=== PATIENT | male | born 1955 | race Caucasian/White ===

== ENCOUNTER → 2024-08-05 11:07 | Outpatient (CLI) | payer MEDICARE, SELFPAY ==
--- NOTE | 2024-08-05 11:11 | DI.CT.S_ITS ---
PROCEDURE: CT LUNG LOW DOSE SCREENING INDICATIONS: CURRENT SMOKER TECHNIQUE: Noncontrast 2.0-2.5 mm thick sections acquired from the pulmonary apices to the posterior costophrenic angles. 7 mm thick axial MIP, and 5 mm coronal and sagittal reformats were then acquired. For radiation dose reduction, the following was used: automated exposure control, adjustment of mA and/or kV according to patient size. COMPARISON: [facility], CT, CT LOW DOSE LUNG CA SCREENING, 01/03/2022, 10:51. FINDINGS: Image quality: Diagnostic Lungs and pleura: In the right upper lung, there is a part solid nodule, that in total measures 1.3 cm. Internal solid component measures 6 mm. These are increased. No pleural effusions. No dense airspace disease. Mediastinum, heart, and esophagus: Coronary calcifications. No pathologic lymph nodes by size criteria. Normal heart size. Unremarkable esophagus. Chest wall and thyroid: Unremarkable Upper abdomen: No gross abnormality on these low-dose noncontrast images Bones: No aggressive appearing osseous abnormality IMPRESSION: LUNG-RADS 4 B; suspicious part solid pulmonary nodule in the right upper lung, with internal solid component measuring 6 mm that is increased. This is favored to represent an adenocarcinoma spectrum lesion. Consider short interval follow-up diagnostic quality chest CT with contrast, PET-CT, or sampling (the solid component of this lesion may be too small currently for the latter 2 options) This was marked in PACS as a result for follow-up and communication. Dictated by: Giovanny Yanes M.D. on 08/05/2024 at 14:01 Approved by: Giovanny Yanes M.D. on 08/05/2024 at 14:08
== END ==
PROVIDERS: PCP Family Medicine; Referring Provider Family Medicine; Visit Provider Family Medicine
DX: Z12.2 Encounter for screening for malignant neoplasm of respiratory organs; F17.210 Nicotine dependence, cigarettes, uncomplicated; I25.10 Atherosclerotic heart disease of native coronary artery without angina pectoris; R91.1 Solitary pulmonary nodule
CPT/HCPCS: 71271

== ENCOUNTER → 2024-08-26 10:11 | Outpatient (CLI) | payer MEDICARE, SELFPAY ==
--- NOTE | 2024-08-26 10:13 | DI.CT.S_ITS ---
PROCEDURE: CT CHEST W CON INDICATIONS: TOBACCO USE DISORDER TECHNIQUE: After the administration of intravenous contrast, 5 mm thick sections acquired from the pulmonary apices to the posterior costophrenic angles. 1 mm axial lung, 5 mm thick coronal and sagittal reformats and 7 mm axial MIP were acquired. For radiation dose reduction, the following was used: automated exposure control, adjustment of mA and/or kV according to patient size. COMPARISON: [facility], CT, CT LOW DOSE LUNG CA SCREENING, 01/03/2022, 10:51. [facility], CT, CT LUNG LOW DOSE SCREENING, 08/05/2024, 11:32. FINDINGS: Image quality: Diagnostic. Lower Neck: No enlarged lymph nodes. Thyroid: No thyroid nodules which require sonographic follow up, per consensus guidelines. Axillae: No enlarged lymph nodes. Chest Wall: Unremarkable. Bones: No suspicious osseous lesion. Lungs and Pleura: No pneumothorax or pleural effusions. Pleural apical scarring. Right upper lobe pulmonary nodule measuring 1.1 cm, () unchanged, and remotely 0.4 cm. Solid component measuring 0.7 cm, (), unchanged. Heart: Heart size is normal. No pericardial effusion. Thoracic Vessels: The aorta and pulmonary arteries demonstrate normal size. No central pulmonary embolism. Mediastinum and Uma: No enlarged lymph nodes. Esophagus: No wall thickening. No hiatal hernia. Upper Abdomen: Visualized upper abdomen solid organs and bowel loops appear normal. Hepatic steatosis. IMPRESSION: 1. Right upper lobe part solid pulmonary nodule measuring 1.1 cm. Unchanged in the short-term interval but increased in size compared to 2021. LUNG-RADS 4B. -Recommend follow-up CT chest in approximately 3 months. PET/CT may be helpful for further evaluation. CT-guided biopsy may be difficult due to its location and small size. May be amenable to endobronchial guided biopsy. 2. No adenopathy. 3. Hepatic steatosis. Dictated by: Fan Amin M.D. on 08/26/2024 at 12:03 Approved by: aFn Amin M.D. on 08/26/2024 at 12:18
[2024-08-26 10:54] LABS: Estimated Glomerular Filt Rate > 60 mL/min (>60)
== END ==
LOC: CT 10:13
PROVIDERS: PCP Family Medicine; Referring Provider Family Medicine; Visit Provider Family Medicine
DX: Z13.89 Encounter for screening for other disorder; R91.8 Other nonspecific abnormal finding of lung field; K76.0 Fatty (change of) liver, not elsewhere classified
CPT/HCPCS: 36415; 71260; 82565; Q9967

== ENCOUNTER → 2024-11-06 08:18 | Outpatient (CLI) | payer MEDICARE, SELFPAY ==
--- NOTE | 2024-11-06 08:20 | DI.CT.S_ITS ---
PROCEDURE: CT CHEST W CON INDICATIONS: LUNG NODULE TECHNIQUE: After the administration of intravenous contrast, 5 mm thick sections acquired from the pulmonary apices to the posterior costophrenic angles. 1 mm axial lung, 5 mm thick coronal and sagittal reformats and 7 mm axial MIP were acquired. For radiation dose reduction, the following was used: automated exposure control, adjustment of mA and/or kV according to patient size. COMPARISON: [facility], CT, CT CHEST W CON, 08/26/2024, 11:20. FINDINGS: Image quality: Diagnostic. Previously noted solid and surrounding ground-glass nodule right upper lobe measuring up to 1.0 cm in total and solid component a 7 mm unchanged. No new nodules. No pneumothorax, no pleural effusion, no pericardial effusion. Moderate calcifications of the coronary arteries, three-vessel disease, mild calcifications of the aortic valve, aortic arch unchanged. No abnormally enlarged lymph nodes. No pneumothorax, no pleural effusion, no pericardial effusion. Moderate degenerative changes of the thoracic spine unchanged. Lower Neck: No enlarged lymph nodes. Thyroid: No thyroid nodules which require sonographic follow up, per consensus guidelines. Axillae: No enlarged lymph nodes. Chest Wall: Unremarkable. Heart: Heart size is normal. Thoracic Vessels: The aorta and pulmonary arteries demonstrate normal size. Esophagus: No wall thickening. No hiatal hernia. Upper Abdomen: Mild low-attenuation of the liver commonly mild hepatic steatosis unchanged IMPRESSION: Right upper lobe pulmonary nodule unchanged. Continued follow-up suggested. No new nodules. Mild low-attenuation of the liver hepatic steatosis unchanged. Dictated by: Eliseo Evans M.D. on 11/06/2024 at 12:21 Approved by: Eliseo Evans M.D. on 11/06/2024 at 12:33
[2024-11-06 08:39] LABS: Estimated Glomerular Filt Rate > 60 mL/min (>60)
== END ==
PROVIDERS: Radiology Diagnostic Radiology; PCP Family Medicine; Referring Provider Family Medicine; Visit Provider Family Medicine
DX: R91.1 Solitary pulmonary nodule (principal); K76.0 Fatty (change of) liver, not elsewhere classified; I25.10 Atherosclerotic heart disease of native coronary artery without angina pectoris; M47.814 Spondylosis without myelopathy or radiculopathy, thoracic region
CPT/HCPCS: 36415; 71260; 82565; Q9967

== ENCOUNTER 2025-03-30 13:06 | Emergency (ER) | payer MEDICARE, SELFPAY ==
[2025-03-30 13:31] VITALS: BP 175/87; PULSE 76; RESP 16; TEMP 37; O2SAT 98; BMI 26.4
[2025-03-30 13:35] VITALS: PULSE 77; O2SAT 99
--- NOTE | 2025-03-30 13:38 | DI.CT.S_ITS ---
PROCEDURE: CT CERVICAL SPINE WO CON INDICATIONS: fall TECHNIQUE: Noncontrast 3 mm thick sections acquired from the skull base to the T4 level. Sagittal and coronal reformats were then constructed. For radiation dose reduction, the following was used: automated exposure control, adjustment of mA and/or kV according to patient size. COMPARISON: None. FINDINGS: Image quality: Excellent. Bones: No fractures or dislocations. Visualized superior ribs are intact. Mildly degenerated disc osteophyte complex at C5-6 and C6-7 which result in [id number] spinal canal stenosis at these levels. Soft tissues: Prevertebral soft tissues are normal in thickness. No paravertebral hematomas. No apical pneumothoraces. IMPRESSION: No displaced fracture or traumatic subluxation. Ulcd-uj-sjvpduiz spinal canal stenosis at C5-6 and C6-7 due to degenerative changes. Dictated by: Marko Barbosa M.D. on 03/30/2025 at 14:27 Approved by: Marko Barbosa M.D. on 03/30/2025 at 14:28
--- NOTE | 2025-03-30 13:39 | DI.CT.S_ITS ---
PROCEDURE: CT HEAD/BRAIN WO CON INDICATIONS: trauma TECHNIQUE: Noncontrast 4.5 mm thick angled axial sections acquired from the foramen magnum to the vertex, with coronal and sagittal reformats. For radiation dose reduction, the following was used: automated exposure control, adjustment of mA and/or kV according to patient size. COMPARISON: None. FINDINGS: Image quality: Diagnostic. CSF spaces: Basal cisterns are patent. No extra-axial fluid collections. The ventricles are symmetric in size and shape. Brain: No intracranial bleeds or mass effect. There is cerebral volume loss, with resultant ventricular and sulcal prominence. There are periventricular and deep white matter chronic small vessel ischemic changes. There is intracranial internal carotid artery atherosclerosis. Skull and face: Calvarium and visualized facial bones appear intact, without suspicious lesions. Sinuses: Visualized sinuses and mastoids are clear. IMPRESSION: No acute intracranial pathology. Dictated by: Marko Barbosa M.D. on 03/30/2025 at 14:26 Approved by: Marko Barbosa M.D. on 03/30/2025 at 14:27
--- NOTE | 2025-03-30 13:40 | DI.CT.S_ITS ---
PROCEDURE: CT CHEST ABD PEL W CON INDICATIONS: fall TECHNIQUE: After the administration of intravenous contrast, 5 mm thick sections acquired from the lung apices to the symphysis. 5 mm coronal and sagittal reformats were performed, with additional 7 mm MIP reformats through the lungs. For radiation dose reduction, the following was used: automated exposure control, adjustment of mA and/or kV according to patient size. COMPARISON: [facility], CT, CT CHEST W CON, 11/06/2024, 8:51. FINDINGS: Image quality: Excellent. CHEST: Lower Neck: No enlarged lymph nodes. Thyroid: No thyroid nodules which require sonographic follow up, per consensus guidelines. Axillae: No enlarged lymph nodes. Chest Wall: Right anterior chest soft tissue contusion without significant hematoma.. Lungs and Pleura: No pneumothorax or pleural effusions. Stable solid and sub solid nodule in the apical right upper lobe (), with the solid component measuring 8 mm. No new consolidation, pulmonary laceration, or contusion. No new suspicious pulmonary nodule. Mild paraseptal emphysema in the bilateral lateral upper lobes. Heart: Heart size is normal. No pericardial effusion. Triple-vessel coronary artery calcifications. Thoracic Vessels: The aorta and pulmonary arteries demonstrate normal size. The left vertebral artery originates from the aortic arch, a normal variant. Mediastinum and Uma: No enlarged lymph nodes. Esophagus: No wall thickening. No hiatal hernia. ABDOMEN: Liver: No solid mass. Diffuse hepatic steatosis. Gallbladder: No radiopaque gallstones or wall thickening. Biliary ducts: No biliary dilation. Pancreas: No ductal dilation. Spleen: Size is within normal limits. Adrenal Glands: No adrenal nodules. Kidneys and Ureters: No hydronephrosis. No solid mass. No complex renal cystic lesion which requires follow up. Stomach and Bowel: Normal colonic caliber, without significant wall thickening. Normal appendix which courses posteriorly. Peritoneum: No abnormal intraperitoneal fluid. No free air. Ventral Wall: No significant ventral hernia. Abdominal Nodes: No retroperitoneal or mesenteric adenopathy by size criteria. Vessels: Aorta and inferior vena cava are normal in size. PELVIS: Pelvic Organs: Unremarkable. Bladder: No bladder wall thickening, accounting for underdistention. Pelvic Nodes: No enlarged lymph nodes. Miscellaneous: No inguinal hernias are seen. Bones: No aggressive osseous abnormality. Multilevel degenerative changes of the mid to inferior thoracic spine with non bridging anterior osteophytes. Degenerative disc disease in the inferior lumbar spine with non bridging osteophytes. IMPRESSION: Acute soft tissue contusion of the right anterior upper chest without hematoma. Stable size of a semi-solid 1 cm nodule in the apical right upper lobe. Recommend continued follow-up as per last CT chest from November 2024. No acute abnormality in the abdomen or pelvis. Dictated by: Marko Barbosa M.D. on 03/30/2025 at 14:28 Approved by: Marko Barbosa M.D. on 03/30/2025 at 14:34
[2025-03-30 14:00] LABS: INR 1.0 (0.9-1.3); Prothrombin Time 11.4 SECONDS (9.4-12.5)
[2025-03-30 14:03] LABS: PTT Partial Thromboplastin Tim 26 SECONDS (25.1-36.5)
[2025-03-30 14:04] VITALS: PULSE 69; RESP 18; O2SAT 99
[2025-03-30 14:06] LABS: Add Manual Diff / Slide Review NO; Alanine Aminotransferase 32 IU/L (<50); Albumin 5.0 g/dL (3.5-5.0); Albumin Globulin Ratio 1.5 (1.0-2.8); Alkaline Phosphatase 59 U/L (38-126); Blood Urea Nitrogen 13 mg/dL (9-20); Calcium 9.5 mg/dL (8.4-10.2); Carbon Dioxide 25 mmol/L (22-32); Chloride 99 mmol/L (98-107); Estimated Glomerular Filt Rate > 60 mL/min (>60); Globulin 3.4 g/dL (1.7-4.1); Glucose 118 mg/dL (70-99); HEMOLYSIS < 15 (0-50); Hematocrit 41.9 % (41-53); Hemoglobin 14.9 g/dL (13.5-17.5); Lymphocytes Absolute Auto 1300 /uL (1100-4500); Magnesium 2.2 mg/dL (1.6-2.3); Mean Corpuscular HGB Conc 35.5 % (30-36); Mean Corpuscular Hemoglobin 36.5 PG (26-34); Mean Corpuscular Volume 102.8 fL (80-100); Platelet Count 166 X10^3/uL (150-400); Potassium 3.8 mmol/L (3.4-5.1); Sodium 135 mmol/L (137-145); Total Protein 8.4 g/dL (6.3-8.2)
[2025-03-30 14:30] VITALS: PULSE 73; RESP 17; O2SAT 98
--- NOTE | 2025-03-30 14:56 | ED_ITS ---
HPI - Fall General Chief Complaint: Fall Stated Complaint: RT shoulder poss dislocated Time Seen by Provider: 03/30/25 13:30 Source: patient Mode of arrival: Ambulatory History of Present Illness HPI Narrative: Patient is a 69-year-old male with no known pertinent past medical history presenting with bruising and shoulder pain. Patient states that he was asleep and had a dream where in he was running, got tangled up in his blankets and fell hitting the bedside table. States that this initially occurred 2 days prior and he had initially plan to manage this only at home. States that in the setting of persistent right shoulder pain and decreased range of motion he presents for further evaluation. Patient otherwise denies severe headache, vision changes, facial pain. He has had no chest pain or shortness of breath. complaint: fall Related Data Allergies Allergy/AdvReac Type Severity Reaction Status Date / Time No Known Drug Allergies Allergy Verified 03/30/25 13:31 Review of Systems Review of Systems ROS Unobtainable: All systems reviewed & are unremarkable except as noted in HPI and below Constitutional Constitutional: Denies fever(s) and Denies frequent falls Eyes Eyes: Denies diplopia ENT Ears, Nose, Mouth, and Throat: Reports nasal trauma Cardiovascular Cardiovascular: Denies chest pain and Denies dyspnea Respiratory Respiratory: Denies dyspnea Musculoskeletal Musculoskeletal: Reports arthralgias and Reports limited range of motion Neurologic Neurologic: Denies frequent falls Patient History Social History Smoking Status: Current every day smoker Smoking Status: Current every day smoker Exam Narrative Exam Narrative: GENERAL: in no distress, not toxic not dyspneic HEAD: Normocephalic. EYES: Pupils equal round, extraocular movements intact without pain, no periorbital swelling or proptosis ENT: Mucous membranes moist. NECK: Trachea midline. CARDIOVASCULAR: Regular rate and rhythm RESPIRATORY: Clear to auscultation. Breath sounds equal bilaterally. No wheezes, rales, or rhonchi. GASTROINTESTINAL: Abdomen soft, non-tender EXTREMITIES: No gross deformities, decreased active range of motion in the right shoulder BACK: No flank tenderness. NEURO: AOx4. Clear speech SKIN: Warm and dry -notable for diffuse ecchymosis over the right face, anterior chest wall and right shoulder PSYCH: Not anxious, is cooperative Initial Vital Signs Initial Vital Signs: Vital Signs Temperature 98.6 F 10/26/25 13:31 Pulse Rate 76 03/30/25 13:31 Respiratory Rate 16 03/30/25 13:31 Blood Pressure 175/87 H 03/30/25 13:31 Pulse Oximetry 98 03/30/25 13:31 Oxygen Delivery Method Room Air 03/30/25 13:31 Course Orders Ordered: ED Orders 03/30/25 13:38 CT cervical spine wo con Stat 03/30/25 13:39 CT head/brain wo con Stat 03/30/25 13:40 CT chest abd pel w con Stat 03/30/25 13:45 CBC Auto Diff [Complete Blood Count AUTO DIFF] Stat CMP [Comprehensive Metabolic Panel] Stat MAG [Magnesium] Stat PT [Prothrombin Time INR] Stat PTT Partial Thromboplastin Kyle Stat Discontinued Medications Acetaminophen (Acetaminophen 325 Mg Tablet) 650 mg PO NOW ONE Stop: 03/30/25 15:43 Last Admin: 03/30/25 15:50 Dose: 650 mg Documented By: FIFI Oxycodone HCl (Oxycodone Ir 5 Mg Tablet) 5 mg PO NOW ONE Stop: 03/30/25 15:43 Last Admin: 03/30/25 15:51 Dose: 5 mg Documented By: FIFI Vital Signs Vital signs: Vital Signs - 8 hr 03/30/25 13:31 03/30/25 13:35 03/30/25 14:04 Temperature 98.6 F Pulse Rate 76 77 69 Respiratory Rate 16 18 Blood Pressure 175/87 H Pulse Oximetry 98 99 99 Oxygen Delivery Method Room Air Room Air 03/30/25 14:30 03/30/25 16:01 Temperature Pulse Rate 73 68 Respiratory Rate 17 16 Blood Pressure 160/65 H Pulse Oximetry 98 98 Oxygen Delivery Method Room Air MDM - Fall Differential Diagnosis Differential diagnosis: Likely syncope, dislocation of shoulder region, concussion with loss of consciousness and other (Clavicle injury, chest wall injury, contusion, hematoma) Lab Data 03/30/25 13:45 03/30/25 13:45 Labs: Lab Results 03/30/25 Range/Units 13:45 WBC 7.4 (4.5-11.0) X10^3/uL RBC 4.07 L (4.5-5.9) X10^6/uL Hgb 14.9 (13.5-17.5) g/dL Hct 41.9 (41-53) % MCV 102.8 H (80-100) fL MCH 36.5 H (26-34) PG MCHC 35.5 (30-36) % RDW 14.0 (11.6-14.8) % Plt Count 166 (150-400) X10^3/uL Neut % (Auto) 69.5 (50-75) % Lymph % (Auto) 17.8 L (25-40) % Randolph % (Auto) 10.8 (3-14) % Eos % (Auto) 1.0 L (2-4) % Baso % (Auto) 0.9 (0-2) % Neut # (Auto) 5100 (7628-3461) /uL Lymph # (Auto) 1300 (6633-9391) /uL Randolph # (Auto) 800 (0-900) /uL Eos # (Auto) 100 (0-450) /uL Baso # (Auto) 100 (0-100) /uL PT 11.4 (9.4-12.5) SECONDS INR 1.0 (0.9-1.3) APTT 26 (25.1-36.5) SECONDS Sodium 135 L (137-145) mmol/L Potassium 3.8 (3.4-5.1) mmol/L Chloride 99 (98-107) mmol/L Carbon Dioxide 25 (22-32) mmol/L BUN 13 (9-20) mg/dL Creatinine 0.76 (0.66-1.25) mg/dL Estimated GFR > 60 (>60) mL/min BUN/Creatinine Ratio 17.1 (6-22) Glucose 118 H (70-99) mg/dL Calcium 9.5 (8.4-10.2) mg/dL Magnesium 2.2 (1.6-2.3) mg/dL Total Bilirubin 0.6 (0.2-1.3) mg/dL AST 38 (17-59) IU/L ALT 32 (<50) IU/L Alkaline Phosphatase 59 (38-126) U/L Total Protein 8.4 H (6.3-8.2) g/dL Albumin 5.0 (3.5-5.0) g/dL Globulin 3.4 (1.7-4.1) g/dL Albumin/Globulin Ratio 1.5 (1.0-2.8) MDM Narrative Medical decision making narrative: History and exam as above. Presentation concerning for coagulopathy, significant traumatic injury given extent of bruising over the anterior chest wall, given patient's age and obvious traumatic injury, we will plan for CT imaging of the head, C-spine, and chest. Suspect likely shoulder joint injury although without exam findings to suggest acute dislocation. Discharge Plan Departure Patient Disposition: Home Clinical Impression: Blunt trauma Contusion Qualifiers: Encounter type: initial encounter Contusion area: thoracic wall Front or back of thoracic wall: front Thoracic wall location detail: right Qualified Code(s): S20.211A - Contusion of right front wall of thorax, initial encounter Shoulder joint pain Qualifiers: Laterality: right Qualified Code(s): M25.511 - Pain in right shoulder Activity Restrictions/Additional Instructions: You were seen in the emergency department for your shoulder pain and bruising following blunt trauma. Evaluation here included examination, lab work, and imaging demonstrated contusion or bruising without evidence of obvious bony injury or dislocation. Given your decreased range of motion, we are also suspicious that there may be disruption to the shoulder joint itself. We recommend using a sling, and pain management with Tylenol and oxycodone for breakthrough severe pain. A referral has also been placed for you to be seen by Orthopedic surgery and therefore number is below. If you develop worsening pain, shortness of breath, increased bruising, new sensory changes in your arm or increasing weakness, other symptoms that are concerning to you, please return to the emergency department for further evaluation. Referrals: Brianne Flores MD [Primary Care Provider, Medical] Aleida Tavarez DO [Physician, Orthopedic Surgery] Stand Alone Forms: Patient Portal/API
[2025-03-30] MEDS: ACETAMINOPHEN 325 MG TABLET 650 MG PO (15:50)
[2025-03-30 16:01] VITALS: BP 160/65; PULSE 68; RESP 16; O2SAT 98
== END 2025-03-30 16:15 | disposition home or self-care (01) ==
PROVIDERS: Emergency Provider Student in an Organized Health Care Education/Training Program; PCP Family Medicine
DX: S20.211A Contusion of right front wall of thorax, initial encounter (principal); M25.511 Pain in right shoulder; S00.83XA Contusion of other part of head, initial encounter; W06.XXXA Fall from bed, initial encounter
CPT/HCPCS: 70450; 71260; 72125; 74177; 80053; 83735; 85025; 85610; 85730; 99283; 99284; Q9967